=== PATIENT | female | born 1990 | race Caucasian/White ===

== ENCOUNTER 2016-12-06 19:50 | Emergency (ER) | payer BC ==
[~2016-12-06] VITALS: Ht 157.5 cm; Wt 104.9 kg
[~2016-12-06 19:50] MED LIST: INDOCIN25 MG PO; Motrin PO; NORCO 7.5/321 TABLET PO; PERCOCET 10/1 TABLET PO; PREFERA-OB1 TABLET PO; PRISTIQ50 MG PO; Percocet 5/325,Endoc PO; VALIUM5 MG PO
[2016-12-06] MEDS ORDERED: DAILY VALUE1 EACH PO (20:37)
[2016-12-06] MEDS ORDERED: LIDODERM 5% P1 PATCH TD (21:00)
[2016-12-06 21:25] LABS: ADD MIUA? YES; BILIRUBIN NEGATIVE; BLOOD LARGE; COLOR YELLOW ((YELLOW)); GLUCOSE (STRIP) NEGATIVE; KETONES 5; LEUKOCYTES NEGATIVE; NITRITE NEGATIVE; PROTEIN (STRIP) 30; SPECIFIC GRAVITY 1.019 (1.000-1.030)
[2016-12-06 21:58] LABS: BACTERIA RARE /HPF; EPITHELIAL CELLS 1+ /HPF; MUCUS TRACE /LPF; RED BLOOD CELLS TNTC /HPF (0-5)
[2016-12-06 23:06] VITALS: BP 122/65
== END 2016-12-06 23:09 | disposition home or self-care (01) ==
LOC: EME 19:50 → RME 19:50
PROVIDERS: Physician Assistant
DX: O99.89 Other specified diseases and conditions complicating pregnancy, childbirth and the puerperium (principal); M54.5 Low back pain; M62.838 Other muscle spasm; R10.2 Pelvic and perineal pain; Z3A.18 18 weeks gestation of pregnancy; Z87.891 Personal history of nicotine dependence
CPT/HCPCS: 81003; 87086; 99281; 99284

== ENCOUNTER 2016-12-11 09:17 | Emergency (ER) | payer BC ==
[~2016-12-11] VITALS: Ht 157.5 cm; Wt 104.5 kg
[~2016-12-11 09:17] MED LIST changes: +DAILY VALUE1 EACH PO; +LIDODERM 5% P1 PATCH TD
[2016-12-11 10:22] LABS: EOSINOPHIL (%) 0.5 % (0-5); EOSINOPHIL COUNT 0.1 K/uL (0-0.3); HEMATOCRIT 36.3 % (36.0-46.0); IMMATURE GRANULOCYTE (%) 0.2 % (0.0-0.7); IMMATURE GRANULOCYTE COUNT 0.2 K/uL; LYMPHOCYTE COUNT 1.8 K/uL (1.0-2.8); MCH 31.7 PG (29.0-34.0); MCHC 36.6 G/DL (30.0-36.0); MCV 86.6 FL (83-99); MEAN PLAT.VOLUME 11.6 uM^3 (9.5-12.4); MONOCYTE (%) 5.3 % (3-12); MONOCYTE COUNT 0.5 K/uL (0-0.8); NEUTROPHIL (%) 75.5 % (45-76); NEUTROPHIL COUNT 7.3 K/uL (1.8-6.4); PLATELET COUNT 256 K/uL (156-360); RBC DIS.WIDTH-CV 11.9 % (11.8-14.6); RBC DIS.WIDTH-SD 36.4 % (39-53); RED BLOOD COUNT 4.19 M/uL (3.80-5.20); WHITE BLOOD COUNT 9.6 K/uL (4.1-10.2)
[2016-12-11 10:28] LABS: CHLORIDE 108 mEq/L (99-109); POTASSIUM 3.9 mEq/L (3.7-5.4); SODIUM 137 mEq/L (136-147)
[2016-12-11 10:31] LABS: GLUCOSE 87 mg/dL (70-99)
[2016-12-11 10:32] LABS: ANION GAP 12 MEQ/L (2-14)
[2016-12-11 10:33] LABS: TOTAL BILIRUBIN 0.9 mg/dL (0.0-1.0)
[2016-12-11 10:34] LABS: ALKALINE PHOSPHATASE 41 IU/L (3-129); GFR ESTIMATE (CALCULATED) > 59 mL/min/
[2016-12-11 10:35] LABS: UREA NITROGEN (BUN) 9 mg/dL (9-23)
[2016-12-11 10:41] LABS: ADD MIUA? YES; BILIRUBIN NEGATIVE; BLOOD MODERATE; COLOR AMBER ((YELLOW)); GLUCOSE (STRIP) NEGATIVE; KETONES 80; LEUKOCYTES TRACE; NITRITE NEGATIVE; PROTEIN (STRIP) 30
[2016-12-11 11:02] LABS: QUANTITATIVE HCG 19057.1 MIU/ML
[2016-12-11 11:13] LABS: EPITHELIAL CELLS 2+ /HPF; MUCUS 1+ /LPF
[2016-12-11 11:14] LABS: BACTERIA 2+ /HPF; CASTS NONE SEEN /LPF; CRYSTALS NONE SEEN; RED BLOOD CELLS 15-20 /HPF (0-5); WHITE BLOOD CELLS 0-5 /HPF (0-5)
[2016-12-11] MEDS ORDERED: TYLENOL WITH C1 EACH PO (13:53)
[2016-12-11] MEDS ORDERED: ZOFRAN4 MG PO (13:53)
[2016-12-11 13:59] VITALS: BP 125/76
[2016-12-11 13:59] LABS: UCUL ADDED? NO
== END 2016-12-11 14:06 | disposition home or self-care (01) ==
LOC: EME 09:17
PROVIDERS: Emergency Medicine
DX: O99.89 Other specified diseases and conditions complicating pregnancy, childbirth and the puerperium (principal); R10.9 Unspecified abdominal pain; R31.9 Hematuria, unspecified; Z3A.18 18 weeks gestation of pregnancy; Z87.891 Personal history of nicotine dependence
CPT/HCPCS: 76770; 76805; 80053; 81003; 84702; 85025; 99281; 99285; J2270; J2405; J7030

== ENCOUNTER 2017-04-18 19:09 | Outpatient (CLI) | payer BC ==
[~2017-04-18 19:09] MED LIST changes: +TYLENOL WITH C1 EACH PO; +ZOFRAN4 MG PO
[2017-04-18 19:41] VITALS: BP 119/76
[2017-04-18 20:08] LABS: ADD MIUA? YES; BILIRUBIN NEGATIVE; BLOOD NEGATIVE; COLOR AMBER ((YELLOW)); GLUCOSE (STRIP) NEGATIVE; KETONES NEGATIVE; LEUKOCYTES TRACE; NITRITE NEGATIVE; PROTEIN (STRIP) NEGATIVE; SPECIFIC GRAVITY 1.027 (1.000-1.030)
[2017-04-18 20:18] LABS: BACTERIA RARE /HPF; CALCIUM OXALATE CRYSTALS 1+ /HPF; EPITHELIAL CELLS 3+ /HPF; MUCUS 2+ /LPF; RED BLOOD CELLS 0-5 /HPF (0-5); UCUL ADDED? NO; WHITE BLOOD CELLS 0-5 /HPF (0-5)
[2017-04-18 20:29] LABS: EOSINOPHIL (%) 0.7 % (0-5); EOSINOPHIL COUNT 0.1 K/uL (0-0.3); HEMATOCRIT 33.1 % (36.0-46.0); IMMATURE GRANULOCYTE (%) 0.6 % (0.0-0.7); IMMATURE GRANULOCYTE COUNT 0.1 K/uL; INSTRUMENT ABS NEUTROPHIL CT 5.4 K/uL; LYMPHOCYTE COUNT 2.2 K/uL (1.0-2.8); MCH 30.9 PG (29.0-34.0); MCV 88.3 FL (83-99); MEAN PLAT.VOLUME 11.4 uM^3 (9.5-12.4); MONOCYTE COUNT 0.7 K/uL (0-0.8); NEUTROPHIL (%) 64.5 % (45-76); NEUTROPHIL COUNT 5.4 K/uL (1.8-6.4); PLATELET COUNT 274 K/uL (156-360); RBC DIS.WIDTH-CV 11.4 % (11.8-14.6); RBC DIS.WIDTH-SD 36.3 % (39-53); RED BLOOD COUNT 3.75 M/uL (3.80-5.20); WHITE BLOOD COUNT 8.4 K/uL (4.1-10.2)
== END 2017-04-18 20:33 | disposition home or self-care (01) ==
LOC: LDRP-OP 19:09 → 2WEST 19:12 → LDRP-OP 06-12 15:56
PROVIDERS: Nurse Practitioner
DX: O26.893 Other specified pregnancy related conditions, third trimester (principal); R30.0 Dysuria; Z3A.36 36 weeks gestation of pregnancy; Z87.891 Personal history of nicotine dependence
CPT/HCPCS: 59025; 81003; 85025; G0378

== ENCOUNTER 2017-04-29 23:52 | Inpatient (IN) | payer BC ==
[2017-04-30] VITALS (24 sets, daily range): BP systolic 104–141; BP diastolic 59–102
[2017-04-30 01:29] LABS: EOSINOPHIL (%) 0.5 % (0-5); EOSINOPHIL COUNT 0.1 K/uL (0-0.3); HEMATOCRIT 32.8 % (36.0-46.0); IMMATURE GRANULOCYTE (%) 0.7 % (0.0-0.7); IMMATURE GRANULOCYTE COUNT 0.1 K/uL; INSTRUMENT ABS NEUTROPHIL CT 10.7 K/uL; LYMPHOCYTE COUNT 2.3 K/uL (1.0-2.8); MCH 30.9 PG (29.0-34.0); MCHC 34.8 G/DL (30.0-36.0); MCV 88.9 FL (83-99); MEAN PLAT.VOLUME 11.7 uM^3 (9.5-12.4); MONOCYTE (%) 6.5 % (3-12); MONOCYTE COUNT 0.9 K/uL (0-0.8); NEUTROPHIL (%) 75.8 % (45-76); NEUTROPHIL COUNT 10.7 K/uL (1.8-6.4); PLATELET COUNT 248 K/uL (156-360); RBC DIS.WIDTH-CV 11.4 % (11.8-14.6); RBC DIS.WIDTH-SD 36.7 % (39-53); RED BLOOD COUNT 3.69 M/uL (3.80-5.20); WHITE BLOOD COUNT 14.1 K/uL (4.1-10.2)
[2017-04-30] MEDS ORDERED: IBUPROFEN800 MG PO (11:11)
[2017-05-01 07:24] VITALS: BP 127/63
[2017-05-01 14:48] VITALS: BP 125/85
== END 2017-05-01 16:04 | disposition home or self-care (01) | DRG 775 ==
LOC: LDRP-OP 23:52 → 2WEST 23:53 → LDRP-OP 06-12 21:38
PROVIDERS: Obstetrics & Gynecology Gynecology
PROC: 10907ZC Drainage of Amniotic Fluid, Therapeutic from Products of Conception, Via Natural or Artificial Opening (ICD-10-PCS; principal; 2017-04-29)
PROC: 3E0R3CZ (ICD-10-PCS; principal; 2017-04-29)
PROC: 00HU33Z Insertion of Infusion Device into Spinal Canal, Percutaneous Approach (ICD-10-PCS; principal; 2017-04-29)
PROC: 10E0XZZ Delivery of Products of Conception, External Approach (ICD-10-PCS; principal; 2017-04-29)
DX: O99.214 Obesity complicating childbirth (principal); E66.01 Morbid (severe) obesity due to excess calories; O99.344 Other mental disorders complicating childbirth; F41.9 Anxiety disorder, unspecified; Z3A.38 38 weeks gestation of pregnancy; Z68.41 Body mass index [BMI] 40.0-44.9, adult; Z37.0 Single live birth
CPT/HCPCS: 85025; C1755; G0378; J3010; J7120

== ENCOUNTER 2017-05-26 23:06 | Emergency (ER) | payer BC ==
[~2017-05-26] VITALS: Ht 157.5 cm; Wt 101.8 kg
[~2017-05-26 23:06] MED LIST changes: +IBUPROFEN800 MG PO
[2017-05-27 00:10] LABS: MCH 29.8 PG (29.0-34.0); MCHC 33.6 G/DL (30.0-36.0); MCV 88.8 FL (83-99); MEAN PLAT.VOLUME 11.4 uM^3 (9.5-12.4); PLATELET COUNT 281 K/uL (156-360); RBC DIS.WIDTH-CV 11.3 % (11.8-14.6); RBC DIS.WIDTH-SD 36.4 % (39-53); RED BLOOD COUNT 4.39 M/uL (3.80-5.20); WHITE BLOOD COUNT 9.5 K/uL (4.1-10.2)
[2017-05-27 00:24] LABS: CHLORIDE 105 mEq/L (99-109); POTASSIUM 3.6 mEq/L (3.7-5.4); SODIUM 141 mEq/L (136-147)
[2017-05-27 00:26] LABS: GLUCOSE 97 mg/dL (70-99)
[2017-05-27 00:27] LABS: ANION GAP 11 MEQ/L (2-14)
[2017-05-27 00:28] LABS: TOTAL BILIRUBIN 0.7 mg/dL (0.0-1.0)
[2017-05-27 00:30] LABS: ALKALINE PHOSPHATASE 69 IU/L (3-129); GFR ESTIMATE (CALCULATED) > 59 mL/min/
[2017-05-27 00:31] LABS: TROP-I INTERPRETATION NEGATIVE; TROPONIN-I < 0.01 ng/mL (0.0-0.30); UREA NITROGEN (BUN) 14 mg/dL (9-23)
[2017-05-27 00:32] LABS: D-DIMER ELISA < 150.00 ng/mLDDU (<230)
[2017-05-27 00:33] LABS: LIPASE 21 U/L (1.0-51.0)
[2017-05-27 01:59] LABS: TROP-I INTERPRETATION NEGATIVE; TROPONIN-I < 0.01 ng/mL (0.0-0.30)
[2017-05-27 02:27] VITALS: BP 104/65
== END 2017-05-27 02:36 | disposition home or self-care (01) ==
LOC: EME → EDBD 23:06 → EME 23:06
PROVIDERS: Emergency Medicine
DX: O90.89 Other complications of the puerperium, not elsewhere classified (principal); R07.89 Other chest pain; R19.7 Diarrhea, unspecified; Z87.891 Personal history of nicotine dependence
CPT/HCPCS: 71020; 80053; 81003; 83690; 84484; 85027; 85379; 93005; 99281; 99284

== ENCOUNTER 2017-08-24 09:00 | Day surgery (SDC) | payer BC ==
[~2017-08-24] VITALS: Ht 157.5 cm; Wt 102.1 kg
[~2017-08-24 09:00] MED LIST changes: +NEXIUM40 MG PO
[2017-08-24 09:25] VITALS: BP 145/70
[2017-08-24] MEDS ORDERED: NORCO 5/3251 TABLET PO (11:14)
[2017-08-24 12:30] VITALS: BP 114/75
[2017-08-24 13:30] VITALS: BP 126/79
== END 2017-08-24 13:50 | disposition home or self-care (01) ==
LOC: SDC 09:00
PROC: 0FT44ZZ Resection of Gallbladder, Percutaneous Endoscopic Approach (ICD-10-PCS; principal; 2017-08-24)
DX: K80.10 Calculus of gallbladder with chronic cholecystitis without obstruction (principal); K21.9 Gastro-esophageal reflux disease without esophagitis; E66.9 Obesity, unspecified; Z68.41 Body mass index [BMI] 40.0-44.9, adult; F17.200 Nicotine dependence, unspecified, uncomplicated
CPT/HCPCS: 88304; J0131; J0690; J1100; J1170; J1885; J2250; J2405; J2710; J2765; J3010; Q0175